=== PATIENT | male | born 1960 | race Caucasian/White ===

== ENCOUNTER → 2022-02-17 09:31 | Outpatient (BNVA) | payer MEDICARE, SELFPAY | PROVIDERS: PCP Physician Assistant Medical; Referring Provider Physician Assistant Medical; Visit Provider Internal Medicine | DX: M1A.9XX1 Chronic gout, unspecified, with tophus (tophi) (principal); M19.90 Unspecified osteoarthritis, unspecified site; Z11.59 Encounter for screening for other viral diseases; Z11.1 Encounter for screening for respiratory tuberculosis | CPT/HCPCS: 80053; 81003; 82955; 84550; 85025; 86480; 86704; 86803; 87340; 99214 ==

== ENCOUNTER → 2022-09-28 11:06 | Outpatient (BNVA) | payer MEDICARE, SELFPAY | PROVIDERS: PCP Physician Assistant Medical; Visit Provider Internal Medicine | DX: M1A.9XX1 Chronic gout, unspecified, with tophus (tophi) (principal); M19.90 Unspecified osteoarthritis, unspecified site; Z79.52 Long term (current) use of systemic steroids | CPT/HCPCS: 36415; 80053; 81003; 84550; 85025; 96372; 99214; J1030 ==

== ENCOUNTER → 2022-11-09 08:39 | Outpatient (BNVA) | payer MEDICARE, SELFPAY | PROVIDERS: PCP Physician Assistant Medical; Visit Provider Internal Medicine | DX: M10.9 Gout, unspecified (principal); M19.90 Unspecified osteoarthritis, unspecified site; Z79.52 Long term (current) use of systemic steroids | CPT/HCPCS: 99213 ==

== ENCOUNTER → 2023-04-13 08:59 | Outpatient (BNVA) | payer MEDICARE, MEDICAID, SELFPAY | PROVIDERS: PCP Physician Assistant Medical; Visit Provider Internal Medicine | DX: M10.9 Gout, unspecified (principal); M19.90 Unspecified osteoarthritis, unspecified site | CPT/HCPCS: 99214 ==